=== PATIENT | male | born 1990 | race Caucasian/White ===

== ENCOUNTER → 2019-06-26 16:45 | Outpatient (CLI) | payer OTHER, SELFPAY ==
--- NOTE | 2019-06-26 16:57 | RAD_ITS ---
STUDY: X-RAY CHEST REASON FOR EXAM: Male, 29 years old. 3 weeks of cough TECHNIQUE: Two view of the chest were performed COMPARISON: None. FINDINGS: Lungs are clear. There is no pneumothorax, pulmonary edema, pleural effusions or cardiomegaly. Osseous structures are intact. There is no gas under the diaphragms. [ ] RAD/Chest PA and Lateral IMPRESSION: 1. No acute cardiorespiratory disease. [ ] Electronically Signed: Ricardo Gordon, at 18:06 EDT Tel , Service support ,
== END ==
PROVIDERS: Family Provider Family Medicine; PCP Family Medicine; Referring Provider Family Medicine; Visit Provider Family Medicine
DX: R05 Cough (principal); J06.9 Acute upper respiratory infection, unspecified
CPT/HCPCS: 71046

== ENCOUNTER → 2021-04-05 | Outpatient (CLI) | payer OTHER, SELFPAY ==
--- NOTE | 2021-04-05 12:15 | LES_PTH ---
PATIENT: MUSA DEWEY [facility][id number] AGE/SX: 30/M ROOM: RE04/05/[address]: Dr. Bakari Cevallos DDS : 1990 BED: DIS: 04/05/2021 SPEC #: [id number] RECD: 04/05/21 15:01 STATUS: MAYCO ROLAND #: [id number] GURDEEP: 04/05/21 12:[address]: Bakari Cevallos DEPT: SURGICAL PATHOLOGY RECD BY: Mary Yu Tissues: Skin of lip, NOS Procedures: Surgery Specimen Level IV HEADER OPERATION: Lower lip biopsy PRE-OP DIAGNOSIS: Probable mucocele TISSUE SUBMITTED: Lower lip MICROSCOPIC DIAGNOSIS Lower lip, biopsy: A piece of squamous mucosa with underlying minor salivary gland tissue with minimal chronic inflammation. Negative for malignancy. See comment. [place]:brody 04/07/2021 COMMENT Definite changes consistent with mucocele are not seen. MICROSCOPIC DESCRIPTION Slides are reviewed. GROSS DESCRIPTION Received in fixative is one container labeled with the patient's name and designated lower lip. The specimen consists of a piece of crawley-white skin measuring 0.5 x 0.5 x 0.2 cm. The specimen is inked and submitted entirely in one cassette. It will be bisected at the time of embedding. / [place]:rg 04/06/21 TC:3 [facility]: [id number]
== END | disposition home or self-care (01) ==
LOC: LABSPEC 15:20
PROVIDERS: Referring Provider Dentist Oral and Maxillofacial Surgery; Visit Provider Dentist Oral and Maxillofacial Surgery
DX: K13.0 Diseases of lips (principal)
CPT/HCPCS: 88305